=== PATIENT | female | born 1950 | race Caucasian/White ===

== ENCOUNTER 2020-11-16 15:48 | Inpatient (IN) ==
[2020-11-16] MEDS ORDERED: 0.9 % SODIUM CHLORIDE 1,000 ML IV ONE (16:59)
[2020-11-16] MEDS ORDERED: ONDANSETRON 4 MG/2 ML VIAL IV ONE (17:00)
[2020-11-16] MEDS ORDERED: ACETAMINOPHEN 1,000 MG/100 ML BAG IV ONE (17:00)
[2020-11-16] MEDS ORDERED: cefTRIAXone 2 GM in DEXTROSE 5% IN WATER 50 ML IV ONE (17:03)
--- NOTE | 2020-11-16 17:03 | Emergency Department Note ---
Weakness HPI <Clarisa Wilder PA-C - Last Filed: 11/16/20 20:25> General Chief complaint: Weakness Stated complaint: weakness Time Seen by Provider: 11/16/20 16:44 Source: patient Mode of arrival: ambulatory Limitations: no limitations History of Present Illness HPI Narrative: This a 70-year-old female who was seen in our ER yesterday for dizziness and headache. She had a teleneuro consult for her symptoms and underwent a CTA of the head and neck as well as an MRI of the brain to rule out stroke. These imaging studies were negative for acute findings. Patient did have a mild elevation of her white blood cell count of 12,600, and a urine that was positive for leukocyte esterase, but otherwise bland and not sent for culture. She also had a mild elevation of her LFTs but normal T bilirubin. She had improvement with IV fluids and meclizine and was discharged home. She returns today with increasing weakness, poor oral intake, fever to 101 Fahrenheit, and now complaining of right-sided flank pain. Her [id number] states that she could not even walk to the bathroom this morning due to weakness. She does have a history of infected kidney stones and sepsis. She currently denies hematuria or dysuria. She denies significant abdominal pain, but does have generalized abdominal pain. She did have diarrhea this morning, and there was no hematochezia. Previous abdominal surgeries include an appendectomy. Pulse is slightly elevated to 107 bpm. Blood pressures are stable at 126/76 mmHg. Related Data Home Medications Medication Instructions Recorded Confirmed amlodipine 10 mg tablet 10 mg PO QDAY 04/16/19 11/17/20 glipizide 2.5 mg tablet, extended 2.5 mg PO QDAY 04/16/19 11/17/20 release 24 hr hydrocodone 5 mg-acetaminophen 325 1 - 2 tab PO Q4 04/16/19 11/17/20 mg tablet insulin glargine 100 unit/mL 10 unit SUB-Q QHS 04/16/19 11/17/20 subcutaneous solution metformin 750 mg tablet,extended mg PO 04/16/19 04/16/19 release 24 hr Previous Rx's Medication Instructions Recorded ondansetron 4 mg disintegrating 4 mg PO Q6H PRN #30 tab 04/16/19 tablet meclizine 12.5 mg PO TID PRN #20 tab 11/15/20 Allergies Allergy/AdvReac Type Severity Reaction Status Date / Time No Known Drug Allergies Allergy Verified 11/15/20 08:23 Review of Systems <Clarisa Wilder PA-C - Last Filed: 11/16/20 20:25> ROS ROS Narrative: Narrative: All systems ED: reviewed and negative except as stated. PFSH <Clarisa Wilder PA-C - Last Filed: 11/16/20 20:25> Narrative Patient History Narrative: Narrative: Medical/Surgical/Family History All Active Problems (Updated 11/16/20 @ 20:25 by Clarisa Wilder PA-C) Vertigo (Acute) Headache (Acute) Acute confusion (Acute) Sepsis (Acute) Weakness (Acute) Acute confusion (Acute) Social History Smoking Status: Never smoker Alcohol Intake Frequency: does not drink Substance Use: does not use Exam <Clarisa Wilder PA-C - Last Filed: 11/16/20 20:25> Narrative Narrative: General: AOx3, NAD, nontoxic appearing. Generalized weakness. Morbidly obese. HEENT: PERRLA, EOMI, normocephalic. Moist mucous membranes. Normal facies and normal dentition. Respiratory: Lungs clear to auscultation bilaterally. No respiratory distress. Unlabored breathing. Heart: Tachycardic rate 201 bpm, and normal rhythm, no murmurs/clicks/rubs. Abdomen: Diffusely tender, negative McBurney's and Angel sign. She is non distended, normal bowel tones. No organomegaly. Extremities: Warm and well perfused. No edema. DP 2+ bilaterally. No venous stasis. Neuro: No focal deficits. Cranial nerves II-XII normal. Skin: Warm dry, no rashes or lesions, no cyanosis. Psych: Normal mood and affect Heme/Lymph: No abnormal bruising General Limitations: no limitations Course <Clarisa Wilder PA-C - Last Filed: 11/16/20 20:25> Course Course Narrative: 70-year-old female presents for a second time in the last 24 hours to the ER for increasing weakness and new onset of right flank pain. Reevaluation(s) Reevaluation #1: CBC, CMP Start IV fluids and give 1 L for tachycardia, check lactate in the setting of fe kim and tachycardia Give IV antiemetics and Tylenol Patient has CT with contrast yesterday, will err on the side of caution and do a CT Noncon today to query for kidney stones Check UA Reevaluation #2: Lactate is 1.5. CT abdomen pelvis without contrast shows resolving right hydronephrosis and a nonobstructing renal stone. No other worrisome findings on imaging. UA is currently still pending Vital Signs Vital signs: Vital Signs Temperature 101.2 F H 11/16/20 15:48 Pulse Rate 107 H 11/16/20 15:48 Respiratory Rate 18 11/16/20 15:48 Blood Pressure 156/85 11/16/20 15:48 Pulse Oximetry (%) 92 11/16/20 15:48 Temperature 97.6 F 11/17/20 15:49 Pulse Rate 100 H 11/17/20 15:49 Respiratory Rate 16 11/17/20 15:49 Blood Pressure 129/65 11/17/20 15:49 Pulse Oximetry (%) 93 11/17/20 15:49 <Tarun Esquivel MD - Last Filed: 11/16/20 21:11> Reevaluation(s) Reevaluation #1: The patient was handed over to me at change of shift. The patient is reevaluated and is alert and oriented with no complaints at this time. Objective work-up in the ED is essentially negative. She has a mild leukocytosis but a normal lactate. Chest x-ray shows no active disease and urinalysis is negative. I spoke to the patient and her family including her [id number], Marilin. They said that if it is possible to keep her at this facility for an observation, they would be acceptable of this. However if a transfer is needed, they do not want to be transferred and would rather be discharged. Plan is to call the house steward/stewardess to see if it is possible to place this patient in observation here locally. Time: 21:05 Reevaluation #2: I spoke to the medical housekeeper who said that there is a bed available. I spoke to the hospitalist, Dr. Mehta. He agreed to place her in observation Time: 21:11 Vital Signs Vital signs: Vital Signs Temperature 101.2 F H 11/16/20 15:48 Pulse Rate 107 H 11/16/20 15:48 Respiratory Rate 18 11/16/20 15:48 Blood Pressure 156/85 11/16/20 15:48 Pulse Oximetry (%) 92 11/16/20 15:48 Temperature 97.6 F 11/17/20 15:49 Pulse Rate 100 H 11/17/20 15:49 Respiratory Rate 16 11/17/20 15:49 Blood Pressure 129/65 11/17/20 15:49 Pulse Oximetry (%) 93 11/17/20 15:49 <Eddie Hodgson MD - Last Filed: 11/17/20 17:42> Vital Signs Vital signs: Vital Signs Temperature 101.2 F H 11/16/20 15:48 Pulse Rate 107 H 11/16/20 15:48 Respiratory Rate 18 11/16/20 15:48 Blood Pressure 156/85 11/16/20 15:48 Pulse Oximetry (%) 92 11/16/20 15:48 Temperature 97.6 F 11/17/20 15:49 Pulse Rate 100 H 11/17/20 15:49 Respiratory Rate 16 11/17/20 15:49 Blood Pressure 129/65 11/17/20 15:49 Pulse Oximetry (%) 93 11/17/20 15:49 MDM <Clarisa Wilder PA-C - Last Filed: 11/16/20 20:25> MDM Narrative Medical decision making narrative: Sepsis Weakness Confusion UA is currently pending. CT showed no obstructing ureteral stones. Patient's heart rate has improved with IV fluids, antipyretics, and ceftriaxone. At this time her work-up is still pending and I have signed her out to Dr. Esquivel at change of shift. Please see his note for further details and plan of care. Lab Data Result diagrams: 11/17/20 05:31 11/17/20 05:31 Labs: Lab Results 11/16/20 11/16/20 11/16/20 Range/Units 17:20 17:20 17:20 WBC 11.6 H (4.5-11.0) K/mcL RBC 5.39 H (4.00-5.20) M/mcL Hgb 15.1 H (12.0-15.0) g/dL Hct 45.3 (36.0-48.0) % MCV 84.0 (80.0-100.0) fL MCH 28.0 (26.0-34.0) pg MCHC 33.3 (31.0-36.0) g/dL RDW 13.7 (11.5-14.5) % Plt Count 297 (140-440) K/mcL MPV 11.0 H (7.4-10.4) fL Neut % (Auto) 69.0 (38.0-78.0) % Lymph % (Auto) 19.5 (15.0-49.0) % [place] % (Auto) 9.0 (1.0-12.0) % Eos % (Auto) 1.9 (0.0-7.0) % Baso % (Auto) 0.6 (0.0-2.0) % Lymph # (Auto) 2.27 (1.50-4.80) K/mcL [place] # (Auto) 1.05 H (0.10-0.90) K/mcL Eos # (Auto) 0.22 (0.00-0.70) K/mcL Baso # (Auto) 0.07 (0.00-0.20) K/mcL Absolute Neutrophils 8.02 H (1.80-8.00) K/mcL VBG Lactic Acid 1.5 (0.5-2.0) mmol/L Sodium 136 (133-145) mmol/L Potassium 3.9 (3.3-5.1) mmol/L Chloride 99 (96-108) mmol/L Carbon Dioxide 23 (22-30) mmol/L Anion Gap 14.0 (8.0-16.0) BUN 13 (8-23) mg/dL Creatinine 0.7 (0.6-1.1) mg/dL GFR Calculation 86 Glucose 203 H (70-105) mg/dL Calcium 9.9 (8.6-10.4) mg/dL Total Bilirubin 0.5 (0.1-1.0) mg/dL AST 77 H (<32) U/L ALT 74 H (<40) U/L Alkaline Phosphatase 88 (39-117) U/L Total Protein 7.2 (5.9-8.4) gm/dL Albumin 3.7 (3.2-5.2) gm/dL Globulin 3.5 (2.2-3.7) gm/dL Albumin/Globulin Ratio 1.1 (1.0-2.3) Lipase (7-60) U/L Urine Color Urine Appearance (Clear) Urine pH (5.0-9.0) Ur Specific [place] (1.000-1.035) Urine Protein (Negative) mg/dL Urine Glucose (UA) (Negative) mg/dL Urine Ketones (Negative) mg/dL Urine Occult Blood (Negative) mg/dL Urine Nitrate (Negative) Urine Bilirubin (Negative) mg/dL Urine Urobilinogen mg/dL Ur Leukocyte Esterase (Negative) /ug Urine RBC (0-3) /hpf Urine WBC (0-4) /hpf Ur Squamous Epith Cells (0-4) /hpf Urine Bacteria (0) /hpf Hyaline Casts (0-2) /lph Urine Mucus (None) /hpf Ur Culture Indicated? 11/16/20 11/16/20 Range/Units 17:20 19:39 WBC (4.5-11.0) K/mcL RBC (4.00-5.20) M/mcL Hgb (12.0-15.0) g/dL Hct (36.0-48.0) % MCV (80.0-100.0) fL MCH (26.0-34.0) pg MCHC (31.0-36.0) g/dL RDW (11.5-14.5) % Plt Count (140-440) K/mcL MPV (7.4-10.4) fL Neut % (Auto) (38.0-78.0) % Lymph % (Auto) (15.0-49.0) % [place] % (Auto) (1.0-12.0) % Eos % (Auto) (0.0-7.0) % Baso % (Auto) (0.0-2.0) % Lymph # (Auto) (1.50-4.80) K/mcL [place] # (Auto) (0.10-0.90) K/mcL Eos # (Auto) (0.00-0.70) K/mcL Baso # (Auto) (0.00-0.20) K/mcL Absolute Neutrophils (1.80-8.00) K/mcL VBG Lactic Acid (0.5-2.0) mmol/L Sodium (133-145) mmol/L Potassium (3.3-5.1) mmol/L Chloride (96-108) mmol/L Carbon Dioxide (22-30) mmol/L Anion Gap (8.0-16.0) BUN (8-23) mg/dL Creatinine (0.6-1.1) mg/dL GFR Calculation Glucose (70-105) mg/dL Calcium (8.6-10.4) mg/dL Total Bilirubin (0.1-1.0) mg/dL AST (<32) U/L ALT (<40) U/L Alkaline Phosphatase (39-117) U/L Total Protein (5.9-8.4) gm/dL Albumin (3.2-5.2) gm/dL Globulin (2.2-3.7) gm/dL Albumin/Globulin Ratio (1.0-2.3) Lipase 20 (7-60) U/L Urine Color [place] Urine Appearance Hazy A (Clear) Urine pH 6.0 (5.0-9.0) Ur Specific [place] 1.030 (1.000-1.035) Urine Protein 100 A (Negative) mg/dL Urine Glucose (UA) Negative (Negative) mg/dL Urine Ketones 20 A (Negative) mg/dL Urine Occult Blood Negative (Negative) mg/dL Urine Nitrate Negative (Negative) Urine Bilirubin Negative (Negative) mg/dL Urine Urobilinogen Negative mg/dL Ur Leukocyte Esterase Negative (Negative) /ug Urine RBC 2 (0-3) /hpf Urine WBC 8 H (0-4) /hpf Ur Squamous Epith Cells 3 (0-4) /hpf Urine Bacteria None (0) /hpf Hyaline Casts 4 H (0-2) /lph Urine Mucus Many A (None) /hpf Ur Culture Indicated? No ED POC Tests ED POC Tests: ABBI - SARS Antigen Negative <Tarun Esquivel MD - Last Filed: 11/16/20 21:11> Lab Data Labs: Lab Results 11/16/20 11/16/20 11/16/20 Range/Units 17:20 17:20 17:20 WBC 11.6 H (4.5-11.0) K/mcL RBC 5.39 H (4.00-5.20) M/mcL Hgb 15.1 H (12.0-15.0) g/dL Hct 45.3 (36.0-48.0) % MCV 84.0 (80.0-100.0) fL MCH 28.0 (26.0-34.0) pg MCHC 33.3 (31.0-36.0) g/dL RDW 13.7 (11.5-14.5) % Plt Count 297 (140-440) K/mcL MPV 11.0 H (7.4-10.4) fL Neut % (Auto) 69.0 (38.0-78.0) % Lymph % (Auto) 19.5 (15.0-49.0) % [place] % (Auto) 9.0 (1.0-12.0) % Eos % (Auto) 1.9 (0.0-7.0) % Baso % (Auto) 0.6 (0.0-2.0) % Lymph # (Auto) 2.27 (1.50-4.80) K/mcL [place] # (Auto) 1.05 H (0.10-0.90) K/mcL Eos # (Auto) 0.22 (0.00-0.70) K/mcL Baso # (Auto) 0.07 (0.00-0.20) K/mcL Absolute Neutrophils 8.02 H (1.80-8.00) K/mcL VBG Lactic Acid 1.5 (0.5-2.0) mmol/L Sodium 136 (133-145) mmol/L Potassium 3.9 (3.3-5.1) mmol/L Chloride 99 (96-108) mmol/L Carbon Dioxide 23 (22-30) mmol/L Anion Gap 14.0 (8.0-16.0) BUN 13 (8-23) mg/dL Creatinine 0.7 (0.6-1.1) mg/dL GFR Calculation 86 Glucose 203 H (70-105) mg/dL Calcium 9.9 (8.6-10.4) mg/dL Total Bilirubin 0.5 (0.1-1.0) mg/dL AST 77 H (<32) U/L ALT 74 H (<40) U/L Alkaline Phosphatase 88 (39-117) U/L Total Protein 7.2 (5.9-8.4) gm/dL Albumin 3.7 (3.2-5.2) gm/dL Globulin 3.5 (2.2-3.7) gm/dL Albumin/Globulin Ratio 1.1 (1.0-2.3) Lipase (7-60) U/L Urine Color Urine Appearance (Clear) Urine pH (5.0-9.0) Ur Specific [place] (1.000-1.035) Urine Protein (Negative) mg/dL Urine Glucose (UA) (Negative) mg/dL Urine Ketones (Negative) mg/dL Urine Occult Blood (Negative) mg/dL Urine Nitrate (Negative) Urine Bilirubin (Negative) mg/dL Urine Urobilinogen mg/dL Ur Leukocyte Esterase (Negative) /ug Urine RBC (0-3) /hpf Urine WBC (0-4) /hpf Ur Squamous Epith Cells (0-4) /hpf Urine Bacteria (0) /hpf Hyaline Casts (0-2) /lph Urine Mucus (None) /hpf Ur Culture Indicated? 11/16/20 11/16/20 Range/Units 17:20 19:39 WBC (4.5-11.0) K/mcL RBC (4.00-5.20) M/mcL Hgb (12.0-15.0) g/dL Hct (36.0-48.0) % MCV (80.0-100.0) fL MCH (26.0-34.0) pg MCHC (31.0-36.0) g/dL RDW (11.5-14.5) % Plt Count (140-440) K/mcL MPV (7.4-10.4) fL Neut % (Auto) (38.0-78.0) % Lymph % (Auto) (15.0-49.0) % [place] % (Auto) (1.0-12.0) % Eos % (Auto) (0.0-7.0) % Baso % (Auto) (0.0-2.0) % Lymph # (Auto) (1.50-4.80) K/mcL [place] # (Auto) (0.10-0.90) K/mcL Eos # (Auto) (0.00-0.70) K/mcL Baso # (Auto) (0.00-0.20) K/mcL Absolute Neutrophils (1.80-8.00) K/mcL VBG Lactic Acid (0.5-2.0) mmol/L Sodium (133-145) mmol/L Potassium (3.3-5.1) mmol/L Chloride (96-108) mmol/L Carbon Dioxide (22-30) mmol/L Anion Gap (8.0-16.0) BUN (8-23) mg/dL Creatinine (0.6-1.1) mg/dL GFR Calculation Glucose (70-105) mg/dL Calcium (8.6-10.4) mg/dL Total Bilirubin (0.1-1.0) mg/dL AST (<32) U/L ALT (<40) U/L Alkaline Phosphatase (39-117) U/L Total Protein (5.9-8.4) gm/dL Albumin (3.2-5.2) gm/dL Globulin (2.2-3.7) gm/dL Albumin/Globulin Ratio (1.0-2.3) Lipase 20 (7-60) U/L Urine Color [place] Urine Appearance Hazy A (Clear) Urine pH 6.0 (5.0-9.0) Ur Specific [place] 1.030 (1.000-1.035) Urine Protein 100 A (Negative) mg/dL Urine Glucose (UA) Negative (Negative) mg/dL Urine Ketones 20 A (Negative) mg/dL Urine Occult Blood Negative (Negative) mg/dL Urine Nitrate Negative (Negative) Urine Bilirubin Negative (Negative) mg/dL Urine Urobilinogen Negative mg/dL Ur Leukocyte Esterase Negative (Negative) /ug Urine RBC 2 (0-3) /hpf Urine WBC 8 H (0-4) /hpf Ur Squamous Epith Cells 3 (0-4) /hpf Urine Bacteria None (0) /hpf Hyaline Casts 4 H (0-2) /lph Urine Mucus Many A (None) /hpf Ur Culture Indicated? No ED POC Tests ED POC Tests: ABBI - SARS Antigen Negative <Eddie Hodgson MD - Last Filed: 11/17/20 17:42> Lab Data Labs: Lab Results 11/16/20 11/16/20 11/16/20 Range/Units 17:20 17:20 17:20 WBC 11.6 H (4.5-11.0) K/mcL RBC 5.39 H (4.00-5.20) M/mcL Hgb 15.1 H (12.0-15.0) g/dL Hct 45.3 (36.0-48.0) % MCV 84.0 (80.0-100.0) fL MCH 28.0 (26.0-34.0) pg MCHC 33.3 (31.0-36.0) g/dL RDW 13.7 (11.5-14.5) % Plt Count 297 (140-440) K/mcL MPV 11.0 H (7.4-10.4) fL Neut % (Auto) 69.0 (38.0-78.0) % Lymph % (Auto) 19.5 (15.0-49.0) % [place] % (Auto) 9.0 (1.0-12.0) % Eos % (Auto) 1.9 (0.0-7.0) % Baso % (Auto) 0.6 (0.0-2.0) % Lymph # (Auto) 2.27 (1.50-4.80) K/mcL [place] # (Auto) 1.05 H (0.10-0.90) K/mcL Eos # (Auto) 0.22 (0.00-0.70) K/mcL Baso # (Auto) 0.07 (0.00-0.20) K/mcL Absolute Neutrophils 8.02 H (1.80-8.00) K/mcL VBG Lactic Acid 1.5 (0.5-2.0) mmol/L Sodium 136 (133-145) mmol/L Potassium 3.9 (3.3-5.1) mmol/L Chloride 99 (96-108) mmol/L Carbon Dioxide 23 (22-30) mmol/L Anion Gap 14.0 (8.0-16.0) BUN 13 (8-23) mg/dL Creatinine 0.7 (0.6-1.1) mg/dL GFR Calculation 86 Glucose 203 H (70-105) mg/dL Calcium 9.9 (8.6-10.4) mg/dL Total Bilirubin 0.5 (0.1-1.0) mg/dL AST 77 H (<32) U/L ALT 74 H (<40) U/L Alkaline Phosphatase 88 (39-117) U/L Total Protein 7.2 (5.9-8.4) gm/dL Albumin 3.7 (3.2-5.2) gm/dL Globulin 3.5 (2.2-3.7) gm/dL Albumin/Globulin Ratio 1.1 (1.0-2.3) Lipase (7-60) U/L Urine Color Urine Appearance (Clear) Urine pH (5.0-9.0) Ur Specific [place] (1.000-1.035) Urine Protein (Negative) mg/dL Urine Glucose (UA) (Negative) mg/dL Urine Ketones (Negative) mg/dL Urine Occult Blood (Negative) mg/dL Urine Nitrate (Negative) Urine Bilirubin (Negative) mg/dL Urine Urobilinogen mg/dL Ur Leukocyte Esterase (Negative) /ug Urine RBC (0-3) /hpf Urine WBC (0-4) /hpf Ur Squamous Epith Cells (0-4) /hpf Urine Bacteria (0) /hpf Hyaline Casts (0-2) /lph Urine Mucus (None) /hpf Ur Culture Indicated? 11/16/20 11/16/20 Range/Units 17:20 19:39 WBC (4.5-11.0) K/mcL RBC (4.00-5.20) M/mcL Hgb (12.0-15.0) g/dL Hct (36.0-48.0) % MCV (80.0-100.0) fL MCH (26.0-34.0) pg MCHC (31.0-36.0) g/dL RDW (11.5-14.5) % Plt Count (140-440) K/mcL MPV (7.4-10.4) fL Neut % (Auto) (38.0-78.0) % Lymph % (Auto) (15.0-49.0) % [place] % (Auto) (1.0-12.0) % Eos % (Auto) (0.0-7.0) % Baso % (Auto) (0.0-2.0) % Lymph # (Auto) (1.50-4.80) K/mcL [place] # (Auto) (0.10-0.90) K/mcL Eos # (Auto) (0.00-0.70) K/mcL Baso # (Auto) (0.00-0.20) K/mcL Absolute Neutrophils (1.80-8.00) K/mcL VBG Lactic Acid (0.5-2.0) mmol/L Sodium (133-145) mmol/L Potassium (3.3-5.1) mmol/L Chloride (96-108) mmol/L Carbon Dioxide (22-30) mmol/L Anion Gap (8.0-16.0) BUN (8-23) mg/dL Creatinine (0.6-1.1) mg/dL GFR Calculation Glucose (70-105) mg/dL Calcium (8.6-10.4) mg/dL Total Bilirubin (0.1-1.0) mg/dL AST (<32) U/L ALT (<40) U/L Alkaline Phosphatase (39-117) U/L Total Protein (5.9-8.4) gm/dL Albumin (3.2-5.2) gm/dL Globulin (2.2-3.7) gm/dL Albumin/Globulin Ratio (1.0-2.3) Lipase 20 (7-60) U/L Urine Color [place] Urine Appearance Hazy A (Clear) Urine pH 6.0 (5.0-9.0) Ur Specific [place] 1.030 (1.000-1.035) Urine Protein 100 A (Negative) mg/dL Urine Glucose (UA) Negative (Negative) mg/dL Urine Ketones 20 A (Negative) mg/dL Urine Occult Blood Negative (Negative) mg/dL Urine Nitrate Negative (Negative) Urine Bilirubin Negative (Negative) mg/dL Urine Urobilinogen Negative mg/dL Ur Leukocyte Esterase Negative (Negative) /ug Urine RBC 2 (0-3) /hpf Urine WBC 8 H (0-4) /hpf Ur Squamous Epith Cells 3 (0-4) /hpf Urine Bacteria None (0) /hpf Hyaline Casts 4 H (0-2) /lph Urine Mucus Many A (None) /hpf Ur Culture Indicated? No ED POC Tests ED POC Tests: ABBI - SARS Antigen Negative Discharge Plan Patient/Caregiver Discharge Instructions Pt seen by VICE PRESIDENT OF ADVERTISING/PA only: No Clinical Impression: Sepsis, Weakness, Acute confusion Patient Disposition: Xfer As Outpt/Obs ([facility]) Condition: Fair Discharge Date/Time: 11/16/20 22:30 Discharge Location: [facility] Discharge Comment: dischared to in pt
[2020-11-16 17:53] LABS: Basophils # (Auto) 0.07 K/mcL (0.00-0.20); Basophils % (Auto) 0.6 % (0.0-2.0); Eosinophils # (Auto) 0.22 K/mcL (0.00-0.70); Eosinophils % (Auto) 1.9 % (0.0-7.0); Hematocrit 45.3 % (36.0-48.0); Hemoglobin 15.1 g/dL (12.0-15.0); Lymphocytes # (Auto) 2.27 K/mcL (1.50-4.80); Lymphocytes % (Auto) 19.5 % (15.0-49.0); Mean Corpuscular HGB Conc 33.3 g/dL (31.0-36.0); Monocytes # (Auto) 1.05 K/mcL (0.10-0.90); Platelet Count 297 K/mcL (140-440); RBC 5.39 M/mcL (4.00-5.20); Red Cell Distribution Width 13.7 % (11.5-14.5); WBC 11.6 K/mcL (4.5-11.0)
[2020-11-16 18:12] LABS: ALT/SGPT 74 U/L (<40); AST/SGOT 77 U/L (<32); Albumin 3.7 gm/dL (3.2-5.2); Albumin/Globulin Ratio 1.1 (1.0-2.3); Alkaline Phosphatase 88 U/L (39-117); Bilirubin,Total 0.5 mg/dL (0.1-1.0); Blood Urea Nitrogen 13 mg/dL (8-23); Calcium 9.9 mg/dL (8.6-10.4); Carbon Dioxide 23 mmol/L (22-30); Chloride 99 mmol/L (96-108); Globulin 3.5 gm/dL (2.2-3.7); Glomerular Filtration Rate 86; Glucose 203 mg/dL (70-105)
[2020-11-16 20:29] LABS: Appearance,Urine HAZY (Clear); Bilirubin,Urine Negative (Negative); Color,Urine AMBER; Culture Indicated,Urine No; Glucose,Urine (UA) Negative (Negative); Ketones,Urine 20 mg/dL (Negative); Leukocyte Esterase,Urine Negative /ug (Negative); Mucus,Urine MANY /hpf; Nitrate,Urine Negative (Negative); Protein,Urine 100 mg/dL (Negative); Urine Blood Negative (Negative); Urine Hyaline Cast 4 /lph (0-2); Urine RBC 2 /hpf (0-3); Urine Squamous Epithelial Cell 3 /hpf (0-4); Urine WBC 8 /hpf (0-4); Urobilinogen,Urine Negative
--- NOTE | 2020-11-16 21:19 | Internal Med History&Physical ---
HPI History of Present Illness Patient information: Note initiated : 11/16/20 at 9:15 pm Service Date, if different from initiated Date: [] Patient: Joanie Arce a 70 y/o F admitted on for weakness. Chief Complaint: History of present illness: Ms. Arce is a 70 year old F with a history of DM type II/DJD/HTN who presents to the ER the second time in 24 hours of increasing weakness/dizziness symptoms started on Friday following an episode of severe headache. Following this she had an extensive work-up in the ER that included CT angiogram head neck/MRI brain/CT head which clearly excluded a CVA. Patient was discharged home after crystalloids following which he started feeling better. She presents again to the ER today with persistent dizziness and headache along with weakness and right-sided flank pain. Patient has been nonfunctional and unable to ambulate due to progressive symptoms. Initial white count 12.6. Urine positive for leukoesterase. Patient received crystalloids/meclizine. Patient again responded well to crystalloids however due to family's insistence about recurring symptoms even though an extensive work-up has been negative hospitalist service was consulted for admission. At the time of my evaluation patient is alert and oriented and nondistressed. She denies active concerns. She denies nausea vomiting, chest pain, shortness of breath but endorses to low-grade fever at home and right-sided flank pain w hich is since subsided. Stable vitals and labs on examination. Denies sick contact. Reviewed imaging findings with patient. Also the fact that entire labs and imaging is not indicated of of an acute process that would mandate hospitalization. Patient and insists on being hospitalized Review of systems 10 point review system was performed and is negative except for ones discussed above PFSH PFSH All Active Problems (Updated 11/16/20 @ 20:25 by Clarisa Wilder PA-C) Vertigo (Acute) Headache (Acute) Acute confusion (Acute) Sepsis (Acute) Weakness (Acute) Acute confusion (Acute) Social History (Updated 04/19/19 @ 17:23 by Светлана Perera PA-C) alcohol intake frequency: does not drink substance use type: does not use MEDS/ALLERGIES Home Medications and Allergies Home Medications Medication Instructions Recorded Confirmed Type amlodipine 10 mg tablet mg PO 04/16/19 04/16/19 History glipizide 2.5 mg tablet, extended 2.5 mg PO QDAY 04/16/19 11/17/20 History release 24 hr hydrocodone 5 mg-acetaminophen 325 tab PO 04/16/19 04/16/19 History mg tablet insulin glargine 100 unit/mL 10 unit SUB-Q QHS 04/16/19 11/17/20 History subcutaneous solution metformin 750 mg tablet,extended mg PO 04/16/19 04/16/19 History release 24 hr ondansetron 4 mg disintegrating 4 mg PO Q6H PRN #30 tab 04/16/19 04/16/19 Rx tablet meclizine 12.5 mg PO TID PRN #20 tab 11/15/20 11/17/20 Rx Allergies Allergy/AdvReac Type Severity Reaction Status Date / Time No Known Drug Allergies Allergy Verified 11/15/20 08:23 EXAM Constitutional Vitals: Temp Pulse Resp BP Pulse Ox 100.7 F H 102 H 18 134/80 91 11/16/20 17:18 11/16/20 20:01 11/16/20 15:48 11/16/20 20:01 11/16/20 20:01 BMI 44, nondistressed Head normocephalic Oral cavity moist No ear or nose discharge Eye no subconjunctival pallor, movement symmetrical S1-S2 occasionally irregular Nonlabored breathing Nondistended pendulous, nontender abdomen Lower extremity no cyanosis clubbing or joint swelling Skin no suspicious lesion Psych anxious but no hallucination Neuro normal higher function on limited neuro exam DATA Data Completed and Pending Labs: Labs from last 24 hours 11/16/20 11/16/20 11/16/20 19:39 17:20 17:20 WBC RBC Hgb Hct MCV MCH MCHC RDW Plt Count MPV Neut % (Auto) Lymph % (Auto) [place] % (Auto) Eos % (Auto) Baso % (Auto) Lymph # (Auto) [place] # (Auto) Eos # (Auto) Baso # (Auto) Absolute Neutrophils VBG Lactic Acid 1.5 Sodium Potassium Chloride Carbon Dioxide Anion Gap BUN Creatinine GFR Calculation Glucose Calcium Total Bilirubin AST ALT Alkaline Phosphatase Total Protein Albumin Globulin Albumin/Globulin Ratio Lipase 20 Urine Color Светлана Urine Appearance Hazy A Urine pH 6.0 Ur Specific [place] 1.030 Urine Protein 100 A Urine Glucose (UA) Negative Urine Ketones 20 A Urine Occult Blood Negative Urine Nitrate Negative Urine Bilirubin Negative Urine Urobilinogen Negative Ur Leukocyte Esterase Negative Urine RBC 2 Urine WBC 8 H Ur Squamous Epith Cells 3 Urine Bacteria None Hyaline Casts 4 H Urine Mucus Many A Ur Culture Indicated? No 11/16/20 11/16/20 17:20 17:20 WBC 11.6 H RBC 5.39 H Hgb 15.1 H Hct 45.3 MCV 84.0 MCH 28.0 MCHC 33.3 RDW 13.7 Plt Count 297 MPV 11.0 H Neut % (Auto) 69.0 Lymph % (Auto) 19.5 [place] % (Auto) 9.0 Eos % (Auto) 1.9 Baso % (Auto) 0.6 Lymph # (Auto) 2.27 [place] # (Auto) 1.05 H Eos # (Auto) 0.22 Baso # (Auto) 0.07 Absolute Neutrophils 8.02 H VBG Lactic Acid Sodium 136 Potassium 3.9 Chloride 99 Carbon Dioxide 23 Anion Gap 14.0 BUN 13 Creatinine 0.7 GFR Calculation 86 Glucose 203 H Calcium 9.9 Total Bilirubin 0.5 AST 77 H ALT 74 H Alkaline Phosphatase 88 Total Protein 7.2 Albumin 3.7 Globulin 3.5 Albumin/Globulin Ratio 1.1 Lipase Urine Color Urine Appearance Urine pH Ur Specific [place] Urine Protein Urine Glucose (UA) Urine Ketones Urine Occult Blood Urine Nitrate Urine Bilirubin Urine Urobilinogen Ur Leukocyte Esterase Urine RBC Urine WBC Ur Squamous Epith Cells Urine Bacteria Hyaline Casts Urine Mucus Ur Culture Indicated? A/P Narrative A/P Narrative: * Weakness and deconditioning-unclear etiology. Extensive new events including MRI brain/CT angioGram head neck/CT head unremarkable. Mild pyuria. Physical therapy evaluation in a.m. * Dizziness not responding to meclizine. Check orthostatic/echocardiogram. Negative CT angiogram head neck. * Mild cystitis-continue Rocephin. Await urine cultures * History DM type II-continue home medications including basal prandial insulin/CC diet * DJD home dose hydrocodone * Hypertension continue amlodipine * Full code * Prophylaxis Heparin Plan * Observation admit at patient and family insistence * Crystalloids * Physical therapy evaluation * Orthostatics and echocardiogram * Antibiotic coverage * Pre-existing medical condition management as above * Discharge planning per case management Time Spent With Patient Time: Total time spent is greater than 50% in coordination of care (as documented) at patient's floor/unit and/or counseling patient:
[2020-11-16] MEDS ORDERED: ACETAMINOPHEN 650 MG/65 ML BAG IV PRN (22:54)
[2020-11-16] MEDS ORDERED: DEXTROSE 31 GM ORAL.SUSP PO PRN (22:54)
[2020-11-16] MEDS ORDERED: POTASSIUM CHLORIDE 20 MEQ PACKET PO PRN (22:54)
[2020-11-16] MEDS ORDERED: ACETAMINOPHEN 325 MG TABLET PO PRN (22:54)
[2020-11-16] MEDS ORDERED: POTASSIUM CHLORIDE 40 MEQ in DEXTROSE 5% IN WATER 500 ML IV PRN (22:54)
[2020-11-16] MEDS ORDERED: guaiFENesin/CODEINE 10 ML UDC PO PRN (22:54)
[2020-11-16] MEDS ORDERED: cefTRIAXone 2 GM in DEXTROSE 5% IN WATER 50 ML IV SCH (22:54)
[2020-11-16] MEDS ORDERED: POLYETHYLENE GLYCOL 3350 17 GM PACKET PO PRN (22:54)
[2020-11-16] MEDS ORDERED: ONDANSETRON 4 MG ODT TABLET SL PRN (22:54)
[2020-11-16] MEDS ORDERED: ONDANSETRON 4 MG/2 ML VIAL IV PRN (22:54)
[2020-11-16] MEDS ORDERED: DEXTROSE 50% 50 ML VIAL IV PRN (22:54)
[2020-11-16] MEDS ORDERED: BISACODYL 10 MG SUPP.RECT PR PRN (22:54)
[2020-11-16] MEDS ORDERED: MAGNESIUM SULFATE 2 GM/50 ML BAG IV PRN (22:54)
[2020-11-16] MEDS: 0.9 % SODIUM CHLORIDE 1,000 ML IV SCH (23:00)
[2020-11-16] MEDS: 0.9 % SODIUM CHLORIDE 10 ML SYRINGE IV SCH (23:01)
[2020-11-17 00:15] LABS: C-Reactive Protein 2.9 mg/dL (0.03-0.80)
[2020-11-17 00:24] LABS: Ferritin 97.6 ng/mL (30.0-400.0)
[2020-11-17] MEDS: 0.9 % SODIUM CHLORIDE 1,000 ML IV SCH ×3 (00:57→22:11)
[2020-11-17] MEDS ORDERED: ACETAMINOPHEN 325 MG TABLET PO ONE (03:27)
--- NOTE | 2020-11-17 03:41 | XRay Report ---
CLINICAL INFORMATION: Weakness COMPARISON: None. TECHNIQUE: Portable FINDINGS: The heart size, mediastinum and pulmonary vessels are unremarkable. The lungs are clear. There are no effusions. The bones and soft tissues are within normal limits. IMPRESSION: Normal chest. Interpreted and Authenticated by: Minesh Doe 11/17/20
--- NOTE | 2020-11-17 05:19 | Cat Scan Report ---
CLINICAL INFORMATION: Bilateral flank pain COMPARISON: Abdomen and pelvic CT 04/19/2019 TECHNIQUE: 0.625 mm helical slices were obtained from the mid heart through the subtrochanteric regions. Following reconstruction, 2.5 mm sagittal, coronal and axial reformatted images were processed and reviewed at bone and soft tissue windows.The exam was performed using radiation dose optimization techniques including, but not limited to, automated exposure control, adjustment of the mA and/or kV according to patient size and use of iterative reconstruction technique. FINDINGS: Lung bases show no abnormality. No effusion. Visualized heart is normal Abdominal images show the noncontrasted liver to be normal in size and configuration without focal lesion. Intravenous contrast has been excreted into the gallbladder from a CT angiogram the previous day-as expected. Gallbladder is unremarkable. Intrahepatic and common bile ducts are normal caliber: CBD is 5 mm. The pancreas, spleen, both adrenal glands and aorta are normal in size, configuration and attenuation without focal lesion. 3-4 tiny (less than 2 mm) nonobstructing stones are seen within the calyces of the right kidney-no obstructing stone or hydronephrosis. A 2.1 cm simple cyst superior pole left kidney is unchanged. Minimal perinephric stranding is unchanged from previous exam it is insignificant. There is no free air, free fluid no adenopathy Pelvic images show anteflexed uterus which is mildly enlarged-9.6 x 4 cm. The fundus has a bulbous configuration. There is identical to the 2019 exam nearly 2 years ago. Urinary bladder shows slight diffuse wall thickening but this is stable. The stomach, small bowel and large bowel are grossly normal. Bone windows chronic bilateral L5-S1 spondylolysis without evidence of spondylolisthesis.. Mild edema in the periarticular region of both hips with scattered tiny extra-articular calcifications demonstrate long-term stability. This is most likely clinically insignificant. IMPRESSION: 1. No cause identified for acute abdominal pain. 2. 3-4 punctate nonobstructing stones in the calyces of the right kidney less than 2 mm. No obstructing stone or hydronephrosis. 3. Mild uterine enlargement with bulbous configuration the fundus which demonstrates long-term stability. Most common cause for uterine enlargement in a on the otherwise morphologically normal uterus, is t adenomyosis. 4. 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 broad disc protrusion results in moderate bilateral IV foraminal narrowing mild impingement exiting L5 nerve roots no change Interpreted and Authenticated by: Minesh Doe 11/17/20
[2020-11-17] MEDS: 0.9 % SODIUM CHLORIDE 10 ML SYRINGE IV SCH ×3 (05:38→22:10)
[2020-11-17 08:03] LABS: Basophils # (Auto) 0.07 K/mcL (0.00-0.20); Basophils % (Auto) 0.7 % (0.0-2.0); Eosinophils # (Auto) 0.29 K/mcL (0.00-0.70); Eosinophils % (Auto) 3.1 % (0.0-7.0); Hematocrit 41.7 % (36.0-48.0); Hemoglobin 13.4 g/dL (12.0-15.0); Lymphocytes % (Auto) 23.3 % (15.0-49.0); Mean Cell Volume 86.2 fL (80.0-100.0); Mean Corpuscular HGB Conc 32.1 g/dL (31.0-36.0); Monocytes # (Auto) 1.01 K/mcL (0.10-0.90); Monocytes % (Auto) 10.7 % (1.0-12.0); Neutrophils % (Auto) 62.2 % (38.0-78.0); Platelet Count 245 K/mcL (140-440); RBC 4.84 M/mcL (4.00-5.20); Red Cell Distribution Width 13.6 % (11.5-14.5); WBC 9.5 K/mcL (4.5-11.0)
[2020-11-17] MEDS: INSULIN LISPRO 1 UNIT/0.01 ML UNIT SQ SCH ×4 (08:10→21:35)
[2020-11-17 08:15] LABS: ALT/SGPT 50 U/L (<40); AST/SGOT 38 U/L (<32); Albumin 3.4 gm/dL (3.2-5.2); Albumin/Globulin Ratio 1.1 (1.0-2.3); Alkaline Phosphatase 73 U/L (39-117); Bilirubin,Direct < 0.2 mg/dL (0-0.3); Bilirubin,Total 0.3 mg/dL (0.1-1.0); Blood Urea Nitrogen 17 mg/dL (8-23); Calcium 8.9 mg/dL (8.6-10.4); Carbon Dioxide 24 mmol/L (22-30); Chloride 101 mmol/L (96-108); Globulin 3.1 gm/dL (2.2-3.7); Glomerular Filtration Rate 86; Glucose 160 mg/dL (70-105); Lactate Dehydrogenase 162 U/L (135-225); Phosphorous 3.8 mg/dL (2.5-4.5); Triglycerides 123 mg/dL (<150); Uric Acid 6.7 mg/dL (2.5-8.0)
[2020-11-17] MEDS: sitaGLIPtin 100 MG TABLET PO SCH (09:51)
[2020-11-17] MEDS: DOCUSATE SODIUM 100 MG CAPSULE PO SCH ×2 (09:51→21:43)
[2020-11-17] MEDS: THIAMINE 100 MG TABLET PO SCH (09:52)
[2020-11-17] MEDS: CYANOCOBALAMIN (VITAMIN B-12) 500 MCG TABLET PO SCH ×2 (09:52→21:43)
[2020-11-17] MEDS: MULTIVIT,THER IRON,CA,FA & MIN 1 TABLET PO SCH (09:52)
[2020-11-17] MEDS: FOLIC ACID 1 MG TABLET PO SCH (09:52)
[2020-11-17] MEDS: cefTRIAXone 2 GM in DEXTROSE 5% IN WATER 50 ML IV SCH (10:00)
[2020-11-17] MEDS: HEPARIN 5,000 UNIT/ML VIAL SQ SCH ×2 (10:04→21:43)
--- NOTE | 2020-11-17 10:08 | Internal Med Progress Note ---
SUBJECTIVE Subjective Patient information: Note initiated : 11/17/20 at 10:06 am Service Date, if different from initiated Date: [] Patient: Joanie Arce a 70 y/o F admitted on 11/16/20 for weakness. Chief Complaint: [] Interval history: Ms. Arce is a 70 year old F with a history of DM type II/DJD/HTN who presents to the ER the second time in 24 hours of increasing weakness/dizziness symptoms started on Friday following an episode of severe headache. Following this she had an extensive work-up in the ER that included CT angiogram head neck/MRI brain/CT head which clearly excluded a CVA. Patient was discharged home after crystalloids following which he started feeling better. She presents again to the ER today with persistent dizziness and headache along with weakness and right-sided flank pain. Patient has been nonfunctional and unable to ambulate due to progressive symptoms. Initial white count 12.6. Urine positive for leukoesterase. Patient received crystalloids/meclizine. Patient again responded well to crystalloids however due to family's insistence about recurring symptoms even though an extensive work-up has been negative hospitalist service was consulted for admission. At the time of my evaluation patient is alert and oriented and nondistressed. She denies active concerns. She denies nausea vomiting, chest pain, shortness of breath but endorses to low-grade fever at home and right-sided flank pain which is since subsided. Stable vitals and labs on examination. Denies sick contact. Reviewed imaging findings with patient. Also the fact that entire labs and imaging is not indicated of of an acute process that would mandate hospitalization. Patient and insists on being hospitalized 11/17-patient doing well. Better than previous night. Persistent dizziness. Await orthostatics and echocardiogram. Negative biochemical profile. Stable hemodynamics overnight. Physical therapy eval today. Anticipate discharge in 24 hours pending work-up results. Continue Rocephin. Urine cultures negative so far Constitutional Vitals: Vital Signs Temp Pulse Resp BP Pulse Ox 97.9 F 82 14 118/61 90 11/17/20 07:25 11/17/20 07:25 11/17/20 07:25 11/17/20 07:25 11/17/20 07:25 Period Temp Pulse Resp BP Sys/Bro Pulse Ox Last 24 Hr 97.9 F-101.2 F 82-108 14-18 118-165/48-98 90-98 Intake and Output 11/16/20 11/17/20 11/17/20 21:59 05:59 13:59 Intake Total 1150 590 Output Total 600 250 Balance 1150 -10 -250 Weight 120.202 kg 120.746 kg alert oriented Nonlabored breathing Minimal anxiety Pendulous abdomen Intake & Output: Intake & Output 11/16/20 11/17/20 11/17/20 21:59 05:59 13:59 Intake Total 1150 590 Output Total 600 250 Balance 1150 -10 -250 Weight 120.202 kg 120.746 kg Intake: IV 1150 Sodium Chloride 0.9% 1,000 ml @ 1000 Wide Open IV BOLUS ONE Rx#: [id number] Rocephin 2 gm In Dextrose 5% in 50 Water 50 ml @ 100 mls/hr IV ONCE ONE Rx#:[id number] Oral 590 Output: Void Amount 300 250 Urine/Stool Mix 300 Other: Meal Breakfast Percent of Meal Consumed 75% Feeding Ability Independent Urine Appearance Clear Clear Urine Color Dark Yellow Bright Yellow Stool Size Moderate Stool Color Brown Stool Consistency Liquid Loose # Bowel Movements 1 # of times incontinent of 1 Bowels OBJ DATA Labs CBC & Chem 7: 11/17/20 05:31 11/17/20 05:31 Labs: Abnormal Lab Results 11/17/20 11/17/20 11/16/20 05:31 05:31 23:15 WBC RBC Hgb MPV 11.0 H [place] # (Auto) 1.01 H Absolute Neutrophils Glucose 160 H GGT 37 H AST 38 H ALT 50 H C-Reactive Protein Procalcitonin 0.13 H Urine Appearance Urine Protein Urine Ketones Urine WBC Hyaline Casts Urine Mucus 11/16/20 11/16/20 11/16/20 23:15 19:39 17:20 WBC RBC Hgb MPV [place] # (Auto) Absolute Neutrophils Glucose 203 H GGT AST 77 H ALT 74 H C-Reactive Protein 2.90 H Procalcitonin Urine Appearance Hazy A Urine Protein 100 A Urine Ketones 20 A Urine WBC 8 H Hyaline Casts 4 H Urine Mucus Many A 11/16/20 17:20 WBC 11.6 H RBC 5.39 H Hgb 15.1 H MPV 11.0 H [place] # (Auto) 1.05 H Absolute Neutrophils 8.02 H Glucose GGT AST ALT C-Reactive Protein Procalcitonin Urine Appearance Urine Protein Urine Ketones Urine WBC Hyaline Casts Urine Mucus Meds: Medications Acetaminophen (Acetaminophen 325 Mg Tablet) 650 mg PO Q4-6HP PRN; Protocol PRN Reason: Per Pain Protocol/Fever > 101 Last Admin: 11/17/20 03:25 Dose: 650 mg Documented by: Bisacodyl (Bisacodyl 10 Mg Supp.Rect) 10 mg OR Q2-3DAYS PRN PRN Reason: Constipation Cyanocobalamin (Cyanocobalamin (Vitamin B-12) 500 Mcg Tablet) 1,000 mcg PO BID [facility] Stop: 11/21/20 21:01 Last Admin: 11/17/20 09:52 Dose: 1,000 mcg Documented by: Dextrose (Dextrose 50% 50 Ml Vial) 0 ml IV UD PRN PRN Reason: Hypoglycemia Diagnostic Test (Pha) (Accu-Chek 1 Each Strip) 1 each FS ACHS [facility] Last Admin: 11/17/20 07:54 Dose: 1 each Documented by: Docusate Sodium (Docusate Sodium 100 Mg Capsule) 100 mg PO BID [facility] Last Admin: 11/17/20 09:51 Dose: Not Given Documented by: Folic Acid (Folic Acid 1 Mg Tablet) 1 mg PO DAILY [facility] Last Admin: 11/17/20 09:52 Dose: 1 mg Documented by: Glucose (Dextrose 31 Gm Oral.Susp) 15 gm PO PRN PRN PRN Reason: Hypoglycemia Guaifenesin/Codeine Phosphate (Guaifenesin/Codeine 10 Ml Udc) 10 ml PO Q4HP PRN PRN Reason: Cough Heparin Sodium (Porcine) (Heparin 5,000 Unit/Ml Vial) 5,000 unit SQ Q12 [facility] Potassium Chloride 40 meq/ (Dextrose) 520 mls @ 130 mls/hr IV UD PRN PRN Reason: K+ = or < 3.5 Acetaminophen (Ofirmev) 650 mg in 65 mls @ 130 mls/hr IV Q6HP PRN; Protocol PRN Reason: Per Pain Protocol/Fever > 101 Magnesium Sulfate (Magnesium Sulfate) 2 gm in 50 mls @ 50 mls/hr IV UD PRN PRN Reason: MG = or < 1.7 Sodium Chloride (Sodium Chloride 0.9%) 1,000 mls @ 50 mls/hr IV .Q20H [facility] Stop: 11/19/20 10:53 Last Admin: 11/16/20 23:00 Dose: 50 mls/hr Documented by: Sodium Chloride (Sodium Chloride 0.9%) 1,000 mls @ 0 mls/hr IV BOLUS [facility] Last Admin: 11/17/20 00:57 Dose: Not Given Documented by: Ceftriaxone Sodium 2 gm/ (Dextrose) 50 mls @ 100 mls/hr IV Q24H [facility]; Protocol Last Admin: 11/17/20 10:00 Dose: 100 mls/hr Documented by: Insulin Human Lispro (Insulin Lispro 1 Unit/0.01 Ml Unit) 0 unit SQ ACHS [facility]; Protocol Last Admin: 11/17/20 08:10 Dose: 2 units Documented by: Iron Carb/Multivit/[place]/Folic Acid (Multivit,Ther Iron,Ca,Fa & Min 1 Tablet) 1 tab PO DAILY [facility] Last Admin: 11/17/20 09:52 Dose: 1 tab Documented by: Melatonin (Melatonin 3 Mg Tablet) 3 mg PO HSP PRN PRN Reason: Insomnia Ondansetron HCl (Ondansetron 4 Mg Odt Tablet) 4 mg SL Q4-6HP PRN; Protocol PRN Reason: Nausea And Vomiting Ondansetron HCl (Ondansetron 4 Mg/2 Ml Vial) 4 mg IV Q4-6HP PRN; Protocol PRN Reason: Nausea And Vomiting Polyethylene Glycol (Polyethylene Glycol 3350 17 Gm Packet) 17 gm PO DAILYP PRN PRN Reason: Constipation Potassium Chloride (Potassium Chloride 20 Meq Packet) 40 meq PO DAILYP PRN PRN Reason: K+ < 3.5 Senna/Docusate Sodium (Sennosides/Docusate Sodium 1 Tab Tablet) 1 tab PO [facility] Sitagliptin Phosphate (Sitagliptin 100 Mg Tablet) 100 mg PO DAILY [facility] Last Admin: 11/17/20 09:51 Dose: 100 mg Documented by: Sodium Chloride (0.9 % Sodium Chloride 10 Ml Syringe) 10 ml IV Q8 [facility] Last Admin: 11/17/20 05:38 Dose: Not Given Documented by: Thiamine HCl (Thiamine 100 Mg Tablet) 100 mg PO DAILY [facility] Last Admin: 11/17/20 09:52 Dose: 100 mg Documented by: A/P Narrative A/P Narrative: * Weakness and deconditioning-extensive neuroimaging including MRI brain/CT angiogram head neck/CT head unremarkable. Orthostatics and echo pending mild pyuria. Physical therapy evaluation in a.m. * Dizziness not responding to meclizine. Await orthostatic/echocardiogram. Negative CT angiogram head neck. * Mild cystitis-continue Rocephin. Await urine cultures * History DM type II-continue home medications including basal prandial insulin/CC diet * DJD continue home dose hydrocodone * Hypertension continue amlodipine * Full code * Prophylaxis Heparin Plan * Continue work-up for dizziness and weakness * Continue crystalloids * Aggressive physical therapy treatments * Antibiotic coverage and de-escalate based on cultures * Pre-existing medical condition management as above * Discharge planning per case management Time Spent With Patient Time: Total time spent is greater than 50% in coordination of care (as documented) at patient's floor/unit and/or counseling patient: QUALITY Stroke Symptom Onset Unknown: No VTE Deep Vein Thrombosis/Pulmonary Embolism Present on Admission: No
[2020-11-17] MEDS: HYDROcodone/APAP 5/325MG TABLET PO PRN (19:26)
[2020-11-17] MEDS: MELATONIN 3 MG TABLET PO PRN (21:43)
[2020-11-17] MEDS: SENNOSIDES/DOCUSATE SODIUM 1 TAB TABLET PO SCH (21:43)
[2020-11-18] MEDS: HYDROcodone/APAP 5/325MG TABLET PO PRN ×3 (04:10→21:05)
[2020-11-18] MEDS: 0.9 % SODIUM CHLORIDE 10 ML SYRINGE IV SCH ×3 (04:59→21:07)
[2020-11-18 06:59] LABS: Basophils # (Auto) 0.06 K/mcL (0.00-0.20); Basophils % (Auto) 0.6 % (0.0-2.0); Eosinophils # (Auto) 0.32 K/mcL (0.00-0.70); Eosinophils % (Auto) 3.4 % (0.0-7.0); Hematocrit 39.9 % (36.0-48.0); Hemoglobin 12.9 g/dL (12.0-15.0); Lymphocytes # (Auto) 1.94 K/mcL (1.50-4.80); Lymphocytes % (Auto) 20.4 % (15.0-49.0); Mean Corpuscular HGB Conc 32.3 g/dL (31.0-36.0); Monocytes # (Auto) 0.89 K/mcL (0.10-0.90); Monocytes % (Auto) 9.4 % (1.0-12.0); Neutrophils % (Auto) 66.2 % (38.0-78.0); Platelet Count 250 K/mcL (140-440); RBC 4.64 M/mcL (4.00-5.20); Red Cell Distribution Width 13.9 % (11.5-14.5); WBC 9.5 K/mcL (4.5-11.0)
[2020-11-18 07:37] LABS: ALT/SGPT 35 U/L (<40); AST/SGOT 20 U/L (<32); Albumin 3.2 gm/dL (3.2-5.2); Albumin/Globulin Ratio 1.1 (1.0-2.3); Alkaline Phosphatase 75 U/L (39-117); Bilirubin,Direct < 0.2 mg/dL (0-0.3); Bilirubin,Total 0.3 mg/dL (0.1-1.0); Blood Urea Nitrogen 17 mg/dL (8-23); Calcium 8.8 mg/dL (8.6-10.4); Carbon Dioxide 22 mmol/L (22-30); Chloride 102 mmol/L (96-108); Globulin 2.9 gm/dL (2.2-3.7); Glomerular Filtration Rate 86; Glucose 255 mg/dL (70-105); Lactate Dehydrogenase 171 U/L (135-225); Phosphorous 2.9 mg/dL (2.5-4.5); Triglycerides 119 mg/dL (<150)
[2020-11-18] MEDS: INSULIN LISPRO 1 UNIT/0.01 ML UNIT SQ SCH ×4 (08:36→21:06)
[2020-11-18] MEDS: DOCUSATE SODIUM 100 MG CAPSULE PO SCH ×2 (08:43→21:06)
[2020-11-18] MEDS: cefTRIAXone 2 GM in DEXTROSE 5% IN WATER 50 ML IV SCH (08:44)
[2020-11-18] MEDS: CYANOCOBALAMIN (VITAMIN B-12) 500 MCG TABLET PO SCH ×2 (08:55→21:05)
[2020-11-18] MEDS: sitaGLIPtin 100 MG TABLET PO SCH (08:55)
[2020-11-18] MEDS: FOLIC ACID 1 MG TABLET PO SCH (08:55)
[2020-11-18] MEDS: MULTIVIT,THER IRON,CA,FA & MIN 1 TABLET PO SCH (08:55)
[2020-11-18] MEDS: THIAMINE 100 MG TABLET PO SCH (08:55)
[2020-11-18] MEDS: HEPARIN 5,000 UNIT/ML VIAL SQ SCH ×2 (09:01→21:07)
[2020-11-18] MEDS: 0.9 % SODIUM CHLORIDE 1,000 ML IV SCH ×2 (14:54→21:47)
--- NOTE | 2020-11-18 16:58 | Internal Med Progress Note ---
SUBJECTIVE Subjective Patient information: Note initiated : 11/18/20 at 4:47 pm Service Date, if different from initiated Date: [] Patient: Joanie Arce a 70 y/o F admitted on 11/16/20 for weakness. Chief Complaint: Follow-up weakness, decreased memory Interval history: Ms. Arce is a 70 year old F with a history of DM type II/DJD/HTN who presents to the ER the second time in 24 hours of increasing weakness/dizziness symptoms started on Friday following an episode of severe headache. Following this she had an extensive work-up in the ER that included CT angiogram head neck/MRI brain/CT head which clearly excluded a CVA. Patient was discharged home after crystalloids following which he started feeling better. She presents again to the ER today with persistent dizziness and headache along with weakness and right-sided flank pain. Patient has been nonfunctional and unable to ambulate due to progressive symptoms. Initial white count 12.6. Urine positive for leukoesterase. Patient received crystalloids/meclizine. Patient again responded well to crystalloids however due to family's insistence about recurring symptoms even though an extensive work-up has been negative hospitalist service was consulted for admission. At the time of my evaluation patient is alert and oriented and nondistressed. She denies active concerns. She denies nausea vomiting, chest pain, shortness of breath but endorses to low-grade fever at home and right-sided flank pain which is since subsided. Stable vitals and labs on examination. Denies sick contact. Reviewed imaging findings with patient. Also the fact that entire labs and imaging is not indicated of of an acute process that would mandate hospitalization. Patient and insists on being hospitalized 11/17-patient doing well. Better than previous night. Persistent dizziness. Await orthostatics and echocardiogram. Negative biochemical profile. Stable hemodynamics overnight. Physical therapy eval today. Anticipate discharge in 24 hours pending work-up results. Continue Rocephin. Urine cultures negative so far. atient forgetful when interviewing. Answers are sometimes protracted. Still complaining of some dizziness, though this appears to be more of a disequilibrium. Tends to lean to 1 side or the other when attempting to ambulate (not consistently to one side or the other). Also concerned that her memory seems worse. She seemed to have had an acute decompensation 1 week ago, which was her 48th wed anniversary. Her daughter who speaks with her daily by phone and FaceTime notes that her mother is not as mentally sharp as a few weeks ago, though has slowly improved over the last couple of days. In retrospect she has had some slow decline in mental acuity over the last several months. During discussion, patient notes that she had not been using CPAP at night for the last several months. She sleeps poorly at night, is sleepy during the afternoons. She tends to be best later in the afternoon after having been awake for a while. Of note she also presented to the ED with a headache that been going on for a few days. She is worked with physical therapy, though still remains weak and a significant fall risk. Echocardiogram performed, results are pending. ABG today with normal PaCO2 Constitutional Vitals: Vital Signs Temp Pulse Resp BP Pulse Ox 97.6 F 78 16 131/71 95 11/18/20 16:00 11/18/20 16:00 11/18/20 16:00 11/18/20 16:00 11/18/20 16:00 Period Temp Pulse Resp BP Sys/Bro Pulse Ox Last 24 Hr 97.2 F-98.2 F 78-101 16-20 112-139/61-76 90-96 Intake and Output 11/18/20 11/18/20 11/18/20 05:59 13:59 21:59 Intake Total 50 0 Output Total 1150 200 Balance -1150 50 -200 GENERAL: Sitting in bed no acute distress RESPIRATORY: Clear bilaterally, no wheezes, unlabored CARDIOVASCULAR: Regular rate and rhythm, no murmur, no peripheral edema ABDOMEN: Obese, soft, mild discomfort diffusely with palpation but without guarding or rebound. Bowel sounds are present EXTREMITIES: Warm, perfused NEURO: Alert, oriented to person, place and situation. Responses are sometimes delayed and occasionally tangential. This is improved during several visits to the patient through the day. Intake & Output: Intake & Output 11/18/20 11/18/20 11/18/20 05:59 13:59 21:59 Intake Total 50 0 Output Total 1150 200 Balance -1150 50 -200 Intake: IV 50 Rocephin 2 gm In Dextrose 5% in 50 Water 50 ml @ 100 mls/hr IV Q24H [facility] Rx#:[id number] Oral 0 Output: Void Amount 1150 200 Other: Urine Appearance Clear Clear Clear Urine Color Dark Yellow Bright Yellow Bright Yellow Urine Odor Normal Stool Size Large Stool Color Green Black Stool Consistency Formed # Voids 1 # Bowel Movements 1 OBJ DATA Labs CBC & Chem 7: 11/18/20 05:20 11/18/20 05:20 Labs: Abnormal Lab Results 11/18/20 11/18/20 11/17/20 05:20 05:20 05:31 WBC RBC Hgb MPV 11.0 H [place] # (Auto) Absolute Neutrophils Glucose 255 H 160 H Magnesium 1.5 L GGT 37 H AST 38 H ALT 50 H C-Reactive Protein Procalcitonin Urine Appearance Urine Protein Urine Ketones Urine WBC Hyaline Casts Urine Mucus 11/17/20 11/16/20 11/16/20 05:31 23:15 23:15 WBC RBC Hgb MPV 11.0 H [place] # (Auto) 1.01 H Absolute Neutrophils Glucose Magnesium GGT AST ALT C-Reactive Protein 2.90 H Procalcitonin 0.13 H Urine Appearance Urine Protein Urine Ketones Urine WBC Hyaline Casts Urine Mucus 11/16/20 11/16/20 11/16/20 19:39 17:20 17:20 WBC 11.6 H RBC 5.39 H Hgb 15.1 H MPV 11.0 H [place] # (Auto) 1.05 H Absolute Neutrophils 8.02 H Glucose 203 H Magnesium GGT AST 77 H ALT 74 H C-Reactive Protein Procalcitonin Urine Appearance Hazy A Urine Protein 100 A Urine Ketones 20 A Urine WBC 8 H Hyaline Casts 4 H Urine Mucus Many A Meds: Medications Acetaminophen (Acetaminophen 325 Mg Tablet) 650 mg PO Q4-6HP PRN; Protocol PRN Reason: Per Pain Protocol/Fever > 101 Last Admin: 11/17/20 03:25 Dose: 650 mg Documented by: Hydrocodone Bitart/Acetaminophen (Hydrocodone/Apap 5/325mg Tablet) 1 tab PO Q4- 6HP PRN; Protocol PRN Reason: Per Pain Protocol Last Admin: 11/18/20 04:10 Dose: 1 tab Documented by: Bisacodyl (Bisacodyl 10 Mg Supp.Rect) 10 mg VA Q2-3DAYS PRN PRN Reason: Constipation Cyanocobalamin (Cyanocobalamin (Vitamin B-12) 500 Mcg Tablet) 1,000 mcg PO BID [facility] Stop: 11/21/20 21:01 Last Admin: 11/18/20 08:55 Dose: 1,000 mcg Documented by: Dextrose (Dextrose 50% 50 Ml Vial) 0 ml IV UD PRN PRN Reason: Hypoglycemia Diagnostic Test (Pha) (Accu-Chek 1 Each Strip) 1 each FS ACHS [facility] Last Admin: 11/18/20 12:45 Dose: 1 each Documented by: Docusate Sodium (Docusate Sodium 100 Mg Capsule) 100 mg PO BID [facility] Last Admin: 11/18/20 08:43 Dose: Not Given Documented by: Folic Acid (Folic Acid 1 Mg Tablet) 1 mg PO DAILY [facility] Last Admin: 11/18/20 08:55 Dose: 1 mg Documented by: Glucose (Dextrose 31 Gm Oral.Susp) 15 gm PO PRN PRN PRN Reason: Hypoglycemia Guaifenesin/Codeine Phosphate (Guaifenesin/Codeine 10 Ml Udc) 10 ml PO Q4HP PRN PRN Reason: Cough Heparin Sodium (Porcine) (Heparin 5,000 Unit/Ml Vial) 5,000 unit SQ Q12 [facility] Last Admin: 11/18/20 09:01 Dose: 5,000 unit Documented by: Potassium Chloride 40 meq/ (Dextrose) 520 mls @ 130 mls/hr IV UD PRN PRN Reason: K+ = or < 3.5 Acetaminophen (Ofirmev) 650 mg in 65 mls @ 130 mls/hr IV Q6HP PRN; Protocol PRN Reason: Per Pain Protocol/Fever > 101 Magnesium Sulfate (Magnesium Sulfate) 2 gm in 50 mls @ 50 mls/hr IV UD PRN PRN Reason: MG = or < 1.7 Last Admin: 11/18/20 10:53 Dose: 50 mls/hr Documented by: Sodium Chloride (Sodium Chloride 0.9%) 1,000 mls @ 50 mls/hr IV .Q20H [facility] Stop: 11/19/20 10:53 Last Admin: 11/18/20 14:54 Dose: Not Given Documented by: Sodium Chloride (Sodium Chloride 0.9%) 1,000 mls @ 0 mls/hr IV BOLUS [facility] Last Admin: 11/17/20 22:11 Dose: Not Given Documented by: Ceftriaxone Sodium 2 gm/ (Dextrose) 50 mls @ 100 mls/hr IV Q24H [facility]; Protocol Last Infusion: 11/18/20 09:15 Dose: Infused Documented by: Insulin Human Lispro (Insulin Lispro 1 Unit/0.01 Ml Unit) 0 unit SQ ACHS [facility]; Protocol Last Admin: 11/18/20 12:53 Dose: 4 units Documented by: Iron Carb/Multivit/[place]/Folic Acid (Multivit,Ther Iron,Ca,Fa & Min 1 Tablet) 1 tab PO DAILY [facility] Last Admin: 11/18/20 08:55 Dose: 1 tab Documented by: Melatonin (Melatonin 3 Mg Tablet) 3 mg PO HSP PRN PRN Reason: Insomnia Last Admin: 11/17/20 21:43 Dose: 3 mg Documented by: Ondansetron HCl (Ondansetron 4 Mg Odt Tablet) 4 mg SL Q4-6HP PRN; Protocol PRN Reason: Nausea And Vomiting Ondansetron HCl (Ondansetron 4 Mg/2 Ml Vial) 4 mg IV Q4-6HP PRN; Protocol PRN Reason: Nausea And Vomiting Polyethylene Glycol (Polyethylene Glycol 3350 17 Gm Packet) 17 gm PO DAILYP PRN PRN Reason: Constipation Potassium Chloride (Potassium Chloride 20 Meq Packet) 40 meq PO DAILYP PRN PRN Reason: K+ < 3.5 Last Admin: 11/17/20 17:39 Dose: 40 meq Documented by: Senna/Docusate Sodium (Sennosides/Docusate Sodium 1 Tab Tablet) 1 tab PO HS [facility] Last Admin: 11/17/20 21:43 Dose: Not Given Documented by: Sitagliptin Phosphate (Sitagliptin 100 Mg Tablet) 100 mg PO DAILY [facility] Last Admin: 11/18/20 08:55 Dose: 100 mg Documented by: Sodium Chloride (0.9 % Sodium Chloride 10 Ml Syringe) 10 ml IV Q8 [facility] Last Admin: 11/18/20 15:17 Dose: Not Given Documented by: Thiamine HCl (Thiamine 100 Mg Tablet) 100 mg PO DAILY [facility] Last Admin: 11/18/20 08:55 Dose: 100 mg Documented by: A/P Narrative A/P Narrative: Weakness and deconditioning, mild confusion and decreased mental acuity -extensive neuroimaging including MRI brain/CT angiogram head neck/CT head unremarkable -May be related to nonuse of CPAP and untreated JING -Still remains significant fall risk 11/18, likely would benefit from further physical therapy and or SNF placement. Discharge planning unavailable today, will monitor in the hospital overnight. Dizziness not responding to meclizine -Echocardiogram pending -On 11/18 describes more of a disequilibrium rather than vertigo or true lightheadedness -Negative CT angiogram head neck -May be related to untreated JING -May benefit from neurology consultation and/or ENT as an outpatient Mild cystitis -Initially treated with ceftriaxone -Urine culture without growth History DM type II -Home medications include basal insulin, sitagliptin, glipizide and Metformin Degenerative joint disease and chronic musculoskeletal pain -On PRN hydrocodone Hypertension -On amlodipine Plan -Continue with physical therapy -Monitor overnight, if still unsafe for discharge will need consideration for SNF placement -If strengthen, may discharge to home with outpatient work-up (neurology, GI) -Discontinue ceftriaxone with negative urine culture -Nocturnal CPAP use while in the hospital -Anticipate outpatient neurology consultation -Outpatient GI consultation for history of rapid transit of food and gluten intolerance (may need endoscopy) -DVT prophylaxis Time Spent With Patient Time: Total time spent is greater than 50% in coordination of care (as documented) at patient's floor/unit and/or counseling patient: Total time spent with greater than 50% in coordination of care (as documented) at patient's floor/unit and/or counseling patient:: Greater than 35 minutes QUALITY Stroke Symptom Onset Unknown: No VTE Deep Vein Thrombosis/Pulmonary Embolism Present on Admission: No
[2020-11-18] MEDS ORDERED: MECLIZINE 25 MG TABLET PO PRN (17:50)
[2020-11-18] MEDS ORDERED: INSULIN GLARGINE, HUMAN 1 UNIT/0.01 ML SQ SCH (21:00)
[2020-11-18] MEDS: MELATONIN 3 MG TABLET PO PRN (21:05)
[2020-11-18] MEDS: SENNOSIDES/DOCUSATE SODIUM 1 TAB TABLET PO SCH (21:06)
[2020-11-19] MEDS: HYDROcodone/APAP 5/325MG TABLET PO PRN ×2 (00:32→06:07)
[2020-11-19] MEDS: 0.9 % SODIUM CHLORIDE 10 ML SYRINGE IV SCH (05:58)
[2020-11-19] MEDS: INSULIN LISPRO 1 UNIT/0.01 ML UNIT SQ SCH ×2 (06:52→11:57)
[2020-11-19 07:14] LABS: Basophils # (Auto) 0.06 K/mcL (0.00-0.20); Basophils % (Auto) 0.6 % (0.0-2.0); Eosinophils # (Auto) 0.51 K/mcL (0.00-0.70); Eosinophils % (Auto) 5.1 % (0.0-7.0); Hemoglobin 13.3 g/dL (12.0-15.0); Lymphocytes # (Auto) 2.79 K/mcL (1.50-4.80); Mean Cell Volume 86.6 fL (80.0-100.0); Mean Corpuscular HGB Conc 31.7 g/dL (31.0-36.0); Mean Platelet Volume 10.9 fL (7.4-10.4); Monocytes # (Auto) 0.92 K/mcL (0.10-0.90); Monocytes % (Auto) 9.2 % (1.0-12.0); Neutrophils % (Auto) 57.1 % (38.0-78.0); Platelet Count 242 K/mcL (140-440); RBC 4.85 M/mcL (4.00-5.20); Red Cell Distribution Width 13.9 % (11.5-14.5)
[2020-11-19 07:33] LABS: ALT/SGPT 31 U/L (<40); AST/SGOT 22 U/L (<32); Albumin 3.5 gm/dL (3.2-5.2); Alkaline Phosphatase 78 U/L (39-117); Bilirubin,Direct < 0.2 mg/dL (0-0.3); Bilirubin,Total 0.4 mg/dL (0.1-1.0); Blood Urea Nitrogen 16 mg/dL (8-23); Carbon Dioxide 23 mmol/L (22-30); Chloride 102 mmol/L (96-108); Globulin 3.4 gm/dL (2.2-3.7); Glomerular Filtration Rate 91; Glucose 211 mg/dL (70-105); Lactate Dehydrogenase 204 U/L (135-225); Phosphorous 3.2 mg/dL (2.5-4.5); Triglycerides 153 mg/dL (<150)
[2020-11-19] MEDS ORDERED: amLODIPine 10 MG TABLET PO SCH (09:00)
[2020-11-19] MEDS: THIAMINE 100 MG TABLET PO SCH (09:58)
[2020-11-19] MEDS: DOCUSATE SODIUM 100 MG CAPSULE PO SCH (09:58)
[2020-11-19] MEDS: sitaGLIPtin 100 MG TABLET PO SCH (09:58)
[2020-11-19] MEDS: CYANOCOBALAMIN (VITAMIN B-12) 500 MCG TABLET PO SCH (09:58)
[2020-11-19] MEDS: FOLIC ACID 1 MG TABLET PO SCH (09:58)
[2020-11-19] MEDS: MULTIVIT,THER IRON,CA,FA & MIN 1 TABLET PO SCH (09:58)
[2020-11-19] MEDS: HEPARIN 5,000 UNIT/ML VIAL SQ SCH (10:00)
--- NOTE | 2020-11-19 11:26 | Discharge Summary ---
Discharge Provider Provider Patient information: Note initiated : 11/19/20 at 11:25 am Service Date, if different from initiated Date: [] Patient: Joanie Arce 70 y/o F admitted on 11/18/20 for weakness. Date of admission: 11/18/20 23:18 Discharge date: 11/19/20 Primary care physician: Janna Jacobs Consults: 11/16/20 21:12 Consult to Physician [CONS] Stat Comment: Consulting Provider: Florentino Guallpa Reason For Exam: Physician to Consult Discharge Meds Discharge Medications Home Medications amlodipine 10 mg tablet 10 mg PO QDAY 04/16/19 [History Confirmed 11/17/20 Last Taken 11/11/20 20:00] glipizide 2.5 mg tablet, extended release 24 hr 10 mg PO BID 04/16/19 [History Confirmed 11/18/20 Last Taken 11/15/20 20:00] hydrocodone 5 mg-acetaminophen 325 mg tablet 1 - 2 tab PO Q4-6HP PRN 04/16/19 [History Confirmed 11/18/20 Last Taken 11/15/20 20:00] insulin glargine 100 unit/mL subcutaneous solution 45 unit SUB-Q QHS 04/16/19 [History Confirmed 11/18/20 Last Taken 11/15/20 20:00] metformin 750 mg tablet,extended release 24 hr 750 mg PO TID 04/16/19 [History Confirmed 11/18/20 Last Taken 11/15/20 20:00] meclizine 12.5 mg PO TID PRN #20 tab 11/15/20 [Rx Confirmed 11/17/20 Last Taken 11/15/20 20:00] COURSE Hospital Course Hospital course: Interval history: Ms. Arce is a 70 year old F with a history of DM type II/DJD/HTN who presents to the ER the second time in 24 hours of increasing weakness/dizziness symptoms started on Friday following an episode of severe headache. Following this she had an extensive work-up in the ER that included CT angiogram head neck/MRI brain/CT head which clearly excluded a CVA. Patient was discharged home after crystalloids following which he started feeling better. She presents again to the ER today with persistent dizziness and headache along with weakness and right-sided flank pain. Patient has been nonfunctional and unable to ambulate due to progressive symptoms. Initial white count 12.6. Urine positive for leukoesterase. Patient received crystalloids/meclizine. Patient again responded well to crystalloids however due to family's insistence about recurring symptoms even though an extensive work-up has been negative hospitalist service was consulted for admission. At the time of my evaluation patient is alert and oriented and nondistressed. She denies active concerns. She denies nausea vomiting, chest pain, shortness of breath but endorses to low-grade fever at home and right-sided flank pain which is since subsided. Stable vitals and labs on examination. Denies sick contact. Reviewed imaging findings with patient. Also the fact that entire labs and imaging is not indicated of of an acute process that would mandate hospitalization. Patient and insists on being hospitalized 11/17-patient doing well. Better than previous night. Persistent dizziness. Await orthostatics and echocardiogram. Negative biochemical profile. Stable hemodynamics overnight. Physical therapy eval today. Anticipate discharge in 24 hours pending work-up results. Continue Rocephin. Urine cultures negative so far. 7/31patient forgetful when interviewing. Answers are sometimes protracted. Still complaining of some dizziness, though this appears to be more of a disequilibrium. Tends to lean to 1 side or the other when attempting to ambulate (not consistently to one side or the other). Also concerned that her memory seems worse. She seemed to have had an acute decompensation 1 week ago, which was her 48th anniversary. Her daughter who speaks with her daily by phone and FaceTime notes that her mother is not as mentally sharp as a few weeks ago, though has slowly improved over the last couple of days. In retrospect she has had some slow decline in mental acuity over the last several months. During discussion, patient notes that she had not been using CPAP at night for the last several months. She sleeps poorly at night, is sleepy during the afternoons. She tends to be best later in the afternoon after having been awake for a while. Of note she also presented to the ED with a headache that been going on for a few days. She is worked with physical therapy, though still remains weak and a significant fall risk. Echocardiogram performed, results are pending. ABG today with normal PaCO2 7/31patient feels improved this morning. Wore CPAP last night, awoke refreshed, which has been unusual for her for the last few months. Worked with physical therapy and did well this morning, would still benefit from outpatient PT. Suspect much of her presentation was due to untreated JING, though still feel thorough neurologic evaluation if there is been a subacute cognitive decline that might not be related to JING. Discharge diagnosis: Confusion, generalized weakness secondary to untreated JING Secondary discharge diagnosis: Acute urinary tract infection ruled out, urine culture no growth x2 days Reason for admission: Confusion, weakness Procedures: None Pertinent studies/significant findings: Imaging results below Complications: None Time Spent with Patient Time attestation: Total time spent providing and/or coordinating discharge services: Time spent: Greater than 30 minutes EXAM Constitutional Vitals: Temp Pulse Resp BP Pulse Ox 97.4 F 78 14 147/85 93 11/19/20 11:20 11/19/20 11:20 11/19/20 11:20 11/19/20 11:20 11/19/20 11:20 GENERAL: Sitting up in bed no acute distress in good spirits RESPIRATORY: Clear bilaterally, unlabored CARDIOVASCULAR: Regular rate and rhythm, no murmur ABDOMEN: Soft, active bowel sounds EXTREMITIES: Warm, perfused NEURO: Alert, oriented to person, place, date, situation. Mild generalized weakness but able to get self up to side of bed and stand with physical therapy. Discharge Data Data Completed and Pending Labs on day of discharge: Labs from last 24 hours 11/19/20 11/19/20 11/18/20 06:06 06:06 05:20 WBC 10.0 RBC 4.85 Hgb 13.3 Hct 42.0 MCV 86.6 MCH 27.4 MCHC 31.7 RDW 13.9 Plt Count 242 MPV 10.9 H Neut % (Auto) 57.1 Lymph % (Auto) 28.0 [place] % (Auto) 9.2 Eos % (Auto) 5.1 Baso % (Auto) 0.6 Lymph # (Auto) 2.79 [place] # (Auto) 0.92 H Eos # (Auto) 0.51 Baso # (Auto) 0.06 Absolute Neutrophils 5.70 Sodium 135 Potassium 4.8 Chloride 102 Carbon Dioxide 23 Anion Gap 10.0 BUN 16 Creatinine 0.6 GFR Calculation 91 Glucose 211 H Uric Acid 7.0 Calcium 9.0 Phosphorus 3.2 Magnesium 2.1 Total Bilirubin 0.4 Direct Bilirubin < 0.2 GGT 38 H AST 22 ALT 31 Alkaline Phosphatase 78 Lactate Dehydrogenase 204 Total Protein 6.9 Albumin 3.5 Globulin 3.4 Albumin/Globulin Ratio 1.0 Triglycerides 153 H TSH 0.63 Preliminary micro results at discharge 11/16/20 18:38 Blood Culture - Preliminary Blood 11/16/20 18:30 Blood Culture - Preliminary Blood 11/16/20 19:39 Urine Culture - Preliminary Urine - Clean Void Mid-Stream Impressions Impressions: Echocardiogram: Guide Dog [employer] In[employer] read is pending Imaging and Cardiology Chest x-ray: Additional comments: Date of Service: 11/16/20 Procedure(s): XR chest 1V portable IMPRESSION: Normal chest. CT scan - head: Additional comments: Date of Service: 11/15/20 Procedure(s): CT head/brain wo con IMPRESSION: Mild atrophy with chronic ischemic changes in the deep cerebral white matter-expected for age. No acute findings CTA Head and Neck: Additional comments: Date of Service: 11/15/20 Procedure(s): CT angio head IMPRESSION: Normal Procedure(s): CT angio neck IMPRESSION: Normal thoracic aortic arch, brachycephalic, all carotid, both subclavian both vertebral arteries. MRI - head: Additional comments: Date of Service: 11/15/20 Procedure(s): MR head/brain stroke IMPRESSION: Moderate atrophy with chronic ischemic changes in the deep cerebral white matter-expected for age. No evidence of acute infarct or other acute int racerebral abnormality CT scan - abdomen: Additional comments: Date of Service: 11/16/20 Procedure(s): CT abdomen pelvis wo con IMPRESSION: 1. No cause identified for acute abdominal pain. 2. 3-4 punctate nonobstructing stones in the calyces of the right kidney less than 2 mm. No obstructing stone or hydronephrosis. 3. Mild uterine enlargement with bulbous configuration the fundus which demonstrates long-term stability. Most common cause for uterine enlargement in a on the otherwise morphologically normal uterus, is t adenomyosis. 4. 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 broad disc protrusion results in moderate bilateral IV foraminal narrowing mild impingement exiting L5 nerve roots no change Discharge Plan Patient/Caregiver Discharge Instructions Activity: increase activity as tolerated Diet: Consistent Carbohydrate Prescriptions: Continued metformin 750 mg tablet extended release 24 hr 750 mg PO TID RF: 0 glipizide 2.5 mg tablet extended release 24hr 10 mg PO BID RF: 0 amlodipine 10 mg tablet 10 mg PO QDAY RF: 0 hydrocodone-acetaminophen 5-325 mg tablet 1 - 2 tab PO Q4-6HP PRN (Reason: Pain) RF: 0 Lantus U-100 Insulin 100 unit/mL solution 45 unit SUB-Q QHS RF: 0 meclizine 12.5 mg tablet 12.5 mg PO TID PRN (Reason: dizziness) Qty: 20 RF: 0 Follow Up Plan Follow up with: Janna Jacobs MD [Primary Care Provider] - (1 week) Patient Disposition: Home, Self-Care Plan of Treatment: You were admitted to the hospital due to abrupt confusion and generalized weakness. Most of your symptoms seem to be related to untreated sleep apnea. It is very important that you use your CPAP machine nightly and during the day anytime you take a nap. You had several scans including a CT and MRI of the brain that only showed chronic age-related changes. There were no blockages in any of the blood vessels that supply the brain. It would also be useful to follow-up with neurology as an outpatient, but if you continue to improve that might be deferred. I think it would be useful to seek evaluation by gastroenterology for your symptoms of food passing through your GI tract quickly. You may need to have an endoscopy to evaluate for malabsorption. If you continue to have changes in hearing and some unsteadiness on your feet, evaluation by ENT is suggested. Prognosis: Fair Rehab Potential: Fair Overall status at discharge: patient is progressing back to baseline Discharge Orders: Discharge Order (Routine); Ordered 11/19/20 Ordered By: Salma TRACEY VTE Deep Vein Thrombosis/Pulmonary Embolism Present on Admission: No
== END 2020-11-19 13:12 | disposition home or self-care (01) | DRG 948 ==
LOC: ED 15:48 → MEDSUR 15:48
PROVIDERS: ADMIT Internal Medicine; ATTEND Internal Medicine